=== PATIENT | female | born 1985 | race American Indian/Alaskan Native ===

== ENCOUNTER 2018-03-27 11:03 | Emergency (ER) | payer OTHER ==
[2018-03-27 11:46] VITALS: TEMP 97.9
[2018-03-27 13:03] LABS: HCG,QUALITATIVE URINE NEGATIVE (NEGATIVE)
[2018-03-27 13:10] LABS: SQUAMOUS EPITHIAL 3 /hpf (0-5); URINE BACTERIA RARE (<OCC); URINE BILIRUBIN NEGATIVE (NEGATIVE); URINE BLOOD 3+ (NEGATIVE); URINE CLARITY Clear (Clear); URINE COLOR Amber (YELLOW); URINE GLUCOSE (UA) NORMAL (Normal); URINE LEUKOCYTE ESTERASE NEG Leu/uL (Negative); URINE PROTEIN NEGATIVE (NEGATIVE); URINE UROBILINOGEN NORMAL mg/dL (0.2-1.0)
[2018-03-27] MEDS ORDERED: MethylPREDNISolone 40 mg Vial IVP STA (13:11)
[2018-03-27] MEDS ORDERED: Albuterol-Ipratrop 3 mg / 0.5 (3 ml) UD IH STA (13:14)
[2018-03-27] MEDS ORDERED: MethylPREDNISolone 40 mg Vial ONE (13:32)
[2018-03-27] MEDS ORDERED: Albuterol-Ipratrop 3 mg / 0.5 (3 ml) UD ONE (13:33)
--- NOTE | 2018-03-27 13:33 | RAD ---
HISTORY: asthma, SOB COMPARISON: Chest radiograph dated 03/03/2018 FINDINGS: LUNGS: No active pulmonary disease. PLEURA: No significant pleural effusion identified, no pneumothorax apparent. CARDIOVASCULAR: Normal. OSSEOUS STRUCTURES: No significant abnormalities. VISUALIZED UPPER ABDOMEN: Normal. OTHER FINDINGS: None. IMPRESSION: No active disease.
[2018-03-27 13:37] LABS: BASO # 0.1 K/uL (0.0-0.2); BASO % 1.2 % (0.0-2.0); EOS # 1.2 K/uL (0.0-0.7); EOS % 17.2 % (0.0-4.0); HEMOGLOBIN 9.3 g/dL (11.0-16.0); LYMPH # 1.9 K/uL (1.0-4.3); LYMPH % 28.4 % (20.0-40.0); MEAN CORPUSCULAR HEMOGLOBIN 23.4 pg (27.0-31.0); MEAN CORPUSCULAR HGB CONC 31.6 g/dL (33.0-37.0); MEAN PLATELET VOLUME 10.1 fL (7.2-11.7); MONO # 0.7 K/uL (0.0-0.8); MONO % 10.3 % (0.0-10.0); NEUT # 2.9 K/uL (1.8-7.0); NEUT % 42.9 % (50.0-75.0); RBC 3.97 Mil/uL (3.80-5.20); RED CELL DISTRIBUTION WIDTH 23.9 % (11.5-14.5); WHITE BLOOD COUNT 6.8 K/uL (4.8-10.8)
[2018-03-27 13:51] LABS: ALB/GLOB RATIO 0.9 (1.0-2.1); ALBUMIN 3.3 g/dL (3.5-5.0); ALT/SGPT 8 U/L (9-52); AST/SGOT 20 U/L (14-36); BLOOD UREA NITROGEN 11 mg/dL (7-17); CALCIUM 8.6 mg/dl (8.6-10.4); GFR AFRICAN-AMERICAN > 60; GFR NON-AFRICAN AMERICAN > 60
--- NOTE | 2018-03-27 14:11 | CT ---
PROCEDURE: CT Chest without contrast HISTORY: asthma, abnorm CXR COMPARISON: None. TECHNIQUE: Contiguous axial images were obtained through the chest without intravenous contrast enhancement. Sagittal and coronal reconstructions were performed. Radiation dose (DLP): 931.4 mGy-cm. This CT exam was performed using one or more of the following dose reduction techniques: Automated exposure control, adjustment of the mA and/or kV according to patient size, and/or use of iterative reconstruction technique. FINDINGS: LUNGS: Right apical subsegmental atelectasis. Scattered bilateral ground-glass nodules, predominantly in the left upper and right lower lobes, likely infectious/ inflammatory in etiology. Visualized airway clear. MEDIASTINUM: Unremarkable thoracic aorta. No aneurysm. Normal sized heart. Main pulmonary artery unremarkable. No vascular congestion. No lymphadenopathy. PLEURA: No pleural fluid. No pneumothorax. BONES: No fracture. No destructive lesion. UPPER ABDOMEN: Prior gastric sleeve surgery. OTHER FINDINGS: None. IMPRESSION: Scattered bilateral ground-glass nodules, predominantly left upper and right lower lobes, likely infectious/ inflammatory in etiology.
--- NOTE | 2018-03-27 14:14 | CT ---
PROCEDURE: CT NECK WITHOUT CONTRAST HISTORY: Stridor wheeze, r/o edema COMPARISON: No prior study available for comparison TECHNIQUE: Contiguous helical/ transaxial sections of the neck without intravenous contrast. Coronal and sagittal reformats generated. . Note that examination is somewhat limited due to the lack of circulating intravenous contrast material. Radiation dose: DLP 427.42 mGy-cm This CT exam was performed using one or more of the following dose reduction techniques: Automated exposure control, adjustment of the mA and/or kV according to patient size, and/or use of iterative reconstruction technique. . FINDINGS: The current study reveals no large cervical masses or collections. Multiple small nonspecific cervical lymph nodes are seen bilaterally none of which appear pathologically enlarged. Evaluation of the cervical vasculature is limited due to the lack of circulating intravenous contrast material. The major salivary glands and thyroid gland unremarkable. Central airway midline and patent. No evidence of airway narrowing. The oral cavity unremarkable. Vallecular and free margins of the epiglottis is well as aryepiglottic folds and pyriform sinuses normal. Vocal cords are symmetric. Lung apices clear. Note is made of complete opacification of the right maxillary sinus with mild to moderate mucosal thickening left maxillary sinus. There is also complete opacification of the ethmoid air complex and frontal sinus. Complete opacification right chamber sphenoid sinus and mild mucosal thickening left chamber sphenoid sinus. There is occlusion of the ostiomeatal complexes, frontal and sphenoid ethmoidal recesses. The cervical spine unremarkable. . NASOPHARYNX: Unremarkable. SUPRAHYOID NECK: Unremarkable oropharynx, oral cavity, parapharyngeal space and retropharyngeal space. INFRAHYOID NECK: Unremarkable larynx, hypopharynx, and supraglottic space. Vocal cords intact. MASS: None. GLANDS: Parotid and submandibular glands unremarkable. Normal size thyroid gland, without nodule. LYMPH NODES: Normal. No lymphadenopathy. CERVICAL SPINE: No fracture or focal lesion. OTHER FINDINGS: None. IMPRESSION: Airway is patent. Multiple small nonspecific bilateral cervical lymph nodes none of which appear pathologically enlarged. There is a diffuse pansinusitis changes with complete opacification of the right maxillary antrum, ethmoid air complex frontal sinus and right chamber sphenoid sinus. Mild to moderate mucosal thickening left maxillary sinus and mild mucosal thickening left chamber sphenoid sinus.
--- NOTE | 2018-03-27 15:46 | C.PDOC ---
History Of Present Illness 32-year-old female, PMHx includes Asthma, being seen in Dr Magaña office, for pre-op for sinus surgery, but has been having increased cough and wheeze over the past several weeks. Dr Hi appreciated stridor on exam, and thought she may have an airway obstruction, resulting in her being sent to ED for evaluation. Time Seen by Provider: 03/27/18 12:11 Chief Complaint (Nursing): Shortness Of Breath History Per: Patient History/Exam Limitations: no limitations Current Symptoms Are (Timing): Still Present Past Medical History Reviewed: Historical Data, Nursing Documentation, Vital Signs Vital Signs: Last Vital Signs Temp 97.9 F 03/27/18 11:39 Pulse 81 03/27/18 16:06 Resp 18 03/27/18 16:06 BP 124/61 03/27/18 16:06 Pulse Ox 94 L 03/27/18 19:05 - Medical History PMH: Anemia (iron transfusion), Anxiety, Asthma, Depression Family History: States: No Known Family Hx - Social History Hx Alcohol Use: Yes Hx Substance Use: No - Immunization History Hx Tetanus Toxoid Vaccination: Yes Hx Influenza Vaccination: Yes Hx Pneumococcal Vaccination: No Review Of Systems Constitutional: Negative for: Fever, Chills Cardiovascular: Negative for: Chest Pain Respiratory: Negative for: Shortness of Breath Gastrointestinal: Negative for: Vomiting Musculoskeletal: Negative for: Neck Pain, Back Pain Neurological: Negative for: Weakness, Numbness, Headache, Dizziness Physical Exam - Physical Exam Appears: Non-toxic, No Acute Distress Skin: Normal Color, Warm, Dry, No Rash Head: Normacephalic Eye(s): bilateral: Normal Inspection, PERRL, EOMI Nose: Normal Oral Mucosa: Moist Lips: Normal Appearing Throat: No Erythema Neck: Normal ROM, Trachea Midline, Supple Chest: Symmetrical, No Tenderness, No Ecchymosis, No Subcutaneous Emphysema Cardiovascular: Rhythm Regular, No Murmur Respiratory: No Decreased Breath Sounds, No Accessory Muscle Use, No Rales, No Rhonchi, No Stridor, Wheezing (Mod expiratory) Gastrointestinal/Abdominal: Bowel Sounds (active), Soft, No Tenderness Back: Normal Inspection, No CVA Tenderness Extremity: Normal ROM, No Deformity, No Swelling Neurological/Psych: Oriented x3, Normal Speech, Normal Motor Gait: Steady ED Course And Treatment - Laboratory Results Result Diagrams: 03/27/18 13:28 03/27/18 13:28 O2 Sat by Pulse Oximetry: 94 (RA) Pulse Ox Interpretation: Abnormal - CT Scan/US CT NECK Other Rad Studies (CT/US): Read By Radiologist, Radiology Report Reviewed CT/US Interpretation: Accession No. : [id number]. Patient Name / ID : HEENA COSME / [id number]. Exam Date : 03/27/2018 13:51:14 ( Approved ). Study Comment : Sex / Age : F / 32Y. Creator : Yessenia Acevedo. Dictator : Merchandise Handler : Photovoltaic Testing Technician : Alan Ramsey MD. Approver2 : Report Date : 13:58:44. My Comment : . PROCEDURE: CT NECK WITHOUT CONTRAST. HISTORY: Stridor wheeze, r/o edema. COMPARISON: No prior study available for comparison. TECHNIQUE: Contiguous helical/ transaxial sections of the neck without intravenous contrast. Coronal and sagittal reformats generated. . Note that examination is somewhat limited due to the lack of circulating intravenous contrast material. Radiation dose: DLP 427.42 mGy-cm. This CT exam was performed using one or more of the following dose reduction techniques: Automated exposure control, adjustment of the mA and/or kV according to patient size, and/or use of iterative reconstruction technique. . FINDINGS: The current study reveals no large cervical masses or collections. Multiple small nonspecific cervical lymph nodes are seen bilaterally none of which appear pathologically enlarged. Evaluation of the cervical vasculature is limited due to the lack of circulating intravenous contrast material. The major salivary glands and thyroid gland unremarkable. Central airway midline and patent. No evidence of airway narrowing. The oral cavity unremarkable. Vallecular and free margins of the epiglottis is well as aryepiglottic folds and pyriform sinuses normal. Vocal cords are symmetric. Lung apices clear. Note is made of complete opacification of the right maxillary sinus with mild to moderate mucosal thickening left maxillary sinus. There is also complete opacification of the ethmoid air complex and frontal sinus. Complete opacification right chamber sphenoid sinus and mild mucosal thickening left chamber sphenoid sinus. There is occlusion of the ostiomeatal complexes, frontal and sphenoid ethmoidal recesses. The cervical spine unremarkable. . NASOPHARYNX: Unremarkable. SUPRAHYOID NECK: Unremarkable oropharynx, oral cavity, parapharyngeal space and retropharyngeal space. INFRAHYOID NECK: Unremarkable larynx, hypopharynx, and supraglottic space. Vocal cords intact. MASS: None. GLANDS: Parotid and submandibular glands unremarkable. Normal size thyroid gland, without nodule. LYMPH NODES: Normal. No lymphadenopathy. CERVICAL SPINE: No fracture or focal lesion. OTHER FINDINGS: None. IMPRESSION: Airway is patent. Multiple small nonspecific bilateral cervical lymph nodes none of which appear pathologically enlarged. There is a diffuse pansinusitis changes with complete opacification of the right maxillary antrum, ethmoid air complex frontal sinus and right chamber sphenoid sinus. Mild to moderate mucosal thickening left maxillary sinus and mild mucosal thickening left chamber sphenoid sinus. CT CHEST Other Rad Studies (CT/US): Read By Radiologist, Radiology Report Reviewed CT/US Interpretation: Accession No. : [id number]. Patient Name / ID : HEENA COSME / [id number]. Exam Date : 03/27/2018 13:54:07 ( Approved ). Study Comment : Sex / Age : F / 32Y. Creator : Yessenia Acevedo. Dictator : Wil Goodrich MD. Merchandise Handler : Photovoltaic Testing Technician : Wil Goodrich MD. Approver2 : Report Date : 03/27/2018 14:00:40. My Comment : . PROCEDURE: CT Chest without contrast. HISTORY: asthma, abnorm CXR. COMPARISON: None. TECHNIQUE: Contiguous axial images were obtained through the chest without intravenous contrast enhancement. Sagittal and coronal reconstructions were performed. . Radiation dose (DLP): 931.4 mGy-cm. This CT exam was performed using one or more of the following dose reduction techniques: Automated exposure control, adjustment of the mA and/or kV according to patient size, and/ or use of iterative reconstruction technique. FINDINGS: LUNGS: Right apical subsegmental atelectasis. Scattered bilateral ground-glass nodules, predominantly in the left upper and right lower lobes, likely infectious/ inflammatory in etiology. Visualized airway clear. MEDIASTINUM: Unremarkable thoracic aorta. No aneurysm. Normal sized heart. Main pulmonary artery unremarkable. No vascular congestion. No lymphadenopathy. PLEURA: No pleural fluid. No pneumothorax. BONES: No fracture. No destructive lesion. UPPER ABDOMEN: Prior gastric sleeve surgery. OTHER FINDINGS: None. IMPRESSION: Scattered bilateral ground-glass nodules, predominantly left upper and right lower lobes, likely infectious/ inflammatory in etiology. Medical Decision Making Medical Decision Making: Plan: * CT Chest/Neck * Bloodwork * Chest X-Ray * Duoneb, SoluMedrol * UA * Reassess and Disposition The patient has had no stridor in the ED and airways are patent. Pulse ox is now 96% on RA. On re-exam, the patient reports improvement of symptoms. Lungs are CTA, heart is RRR, abdomen is soft, non-tender and the patient is tolerating PO well. Ambulatory in the Ed with steady gait. Follow up with the medical doctor within 1-2 days. Return if worsened. Disposition - Disposition Referrals: Michael Granger MD [Staff Provider] - Disposition: HOME/ ROUTINE Disposition Time: 15:47 Condition: IMPROVED Additional Instructions: Follow up with the medical doctor within 1-2 days. Return if worsened. Prescriptions: Albuterol HFA [Ventolin HFA 90 mcg/actuation (8 g)] 1 puff IH Q4 PRN #1 puff PRN Reason: Wheezing predniSONE [Prednisone] 20 mg PO BID #10 tab Instructions: Asthma in Adults Forms: [facility] ([place]) - Clinical Impression Clinical Impression: Asthma - Scribe Statement The provider has reviewed the documentation as recorded by the Scribe (Samira Pace) All medical record entries made by the Scribe were at my direction and personally dictated by me. I have reviewed the chart and agree that the record accurately reflects my personal performance of the history, physical exam, medical decision making, and the department course for this patient. I have also personally directed, reviewed, and agree with the discharge instructions and disposition.
[2018-03-27 16:09] VITALS: BP 124/61; PULSE 81; RESP 18
[2018-03-27 18:28] VITALS: O2SAT 94
== END 2018-03-27 16:09 | disposition home or self-care (01) ==
LOC: C.ER 11:03
DX: J45.909 Unspecified asthma, uncomplicated (principal)
CPT/HCPCS: 70490; 71045; 71250; 80053; 81001; 84703; 85025; 94150; 94640; 96374; 99284; J2920

== ENCOUNTER 2018-04-04 08:05 | Day surgery (SDC) | payer OTHER ==
[2018-03-31 09:57] VITALS: BMI 47.0
[~2018-04-04 08:05] MED LIST: EPINEPHrine 1:1000 Nasal Sol(30mL) ONE; Lidocaine/Epinephrine 1% 1:100000 10 ML IJ ONE; ceFAZolin 1 gm in NS 1 GM/100 ML BAG IVPB ONE
[2018-04-04] MEDS ORDERED: Acetaminophen-Codeine 300/30 mg Tab PO PRN (09:12)
[2018-04-04] MEDS ORDERED: Dextrose 5%/0.45% NS 1,000 ML IV SCH (09:15)
[2018-04-04] MEDS ORDERED: Lactated Ringer's 1,000 ML IV ONE ×2 (10:50→13:00)
[2018-04-04] MEDS ORDERED: Midazolam 2 MG/2 ML VIAL ONE (10:51)
[2018-04-04] MEDS ORDERED: Propofol 10 mg/ml Inj (20 ML) ONE (10:51)
[2018-04-04] MEDS ORDERED: Rocuronium 10 mg/ml (5 ml) ONE ×2 (10:53→10:54)
[2018-04-04] MEDS ORDERED: Succinylcholine Chloride 20 mg/ml Syr (5 ml) IV ONE (10:55)
[2018-04-04] MEDS ORDERED: Albuterol HFA 90 mcg/actuation (8 g) ONE (10:55)
[2018-04-04] MEDS ORDERED: HYDROmorphone 0.5 mg/0.5 ml ISec IVP PRN (12:28)
[2018-04-04] MEDS: HYDROmorphone 0.5 mg/0.5 ml ISec IVP PRN ×2 (12:40→13:05)
[2018-04-04] MEDS ORDERED: Neostigmine Methylsulfate 3mg/3ml Syringe IV ONE (12:57)
[2018-04-04 14:17] VITALS: RESP 18; O2SAT 95
[2018-04-04 14:53] VITALS: BP 113/62; PULSE 81; TEMP 97.7
--- NOTE | 2018-04-05 00:12 | OP ---
PROCEDURE DATE: 04/04/2018 PREOPERATIVE DIAGNOSES: Chronic sinusitis, deviated septum, large turbinates. POSTOPERATIVE DIAGNOSES: Chronic sinusitis, deviated septum, large turbinates. PROCEDURES: Endoscopic bilateral ethmoidectomy, endoscopic bilateral maxillary antrostomy, endoscopic bilateral sphenoidotomy, endoscopic bilateral frontal sinusotomy, septoplasty, and endoscopic bilateral inferior turbinate reduction. Polyposis on the ethmoid sinuses on both sides, maxillary and sphenoid antrum stenosed on both sides, frontal recess stenosed on both sides, deviated septum, enlarged inferior turbinates. DESCRIPTION OF PROCEDURE: The patient was brought into the room, placed in supine position. Anesthesia was initiated through an ET tube. Adrenaline-soaked pledgets were inserted into the nasal cavity, remained there for at least 5 minutes and removed. Navigation was set up and used throughout the case in order to ensure that the skull base and orbit were not entered. The patient was draped in the usual manner. The septum was injected with lidocaine with epinephrine on both sides. A Guion incision was made on the left, and mucoperichondrial flap was raised on the other side. A vertical incision was made in the cartilage leaving a 1.5 cm anterior and superior strut, and the mucoperichondrial flap was raised on the other side. Deviated portion of the bone and cartilage were removed. A quilting suture was used to suture the two flaps together and close the Guion incision. A 0-degree scope was inserted into the nasal cavity. The inferior turbinates were noted to be enlarged, and were reduced in size using scissors to confirm an inferior to superior, anterior to posterior direction on both sides, first on the left, then on the right. Bleeding was controlled using suction cautery. Attention was turned to the left. The middle turbinate was injected with lidocaine with epinephrine and medialized. The uncinate process was medialized. A debrider was used to enter the middle meatus which had polyps. It was also used to remove the uncinate process. The ethmoid bulla was entered inferomedially, going posteriorly to the basal lamella, then anteriorly and superiorly. The ethmoid bulla was removed. The basal lamella was entered. Posterior ethmoid cells were entered and opened. Skull base was identified and followed anteriorly all the way to the area of the anterior ethmoid air cells. The frontal recess was noted to be stenosed and opened using forceps. The sphenoid antrum was noted to be stenosed and opened using forceps. A curved suction was used to locate the maxillary antrum, which was noted to be stenosed and opened using forceps. Attention was turned to the other side. The middle turbinate was injected with lidocaine with epinephrine and medialized. A [place] elevator was used to medialize the uncinate process which was removed using a debrider. Polyps were found emanating from the middle meatus which were removed using a debrider. The ethmoid bulla was entered inferomedially, going posteriorly to the basal lamella, then anteriorly and superiorly until the ethmoid bulla was removed. The basal lamella was entered. Posterior ethmoid cells were entered and opened. Skull base was identified and followed anteriorly all the way to the area of the anterior ethmoid air cells. The frontal recess was noted to be stenosed and opened using forceps. The sphenoid antrum was noted to be stenosed and opened using forceps. Maxillary antrum was noted to be stenosed and opened using forceps. Bleeding was controlled using adrenaline-soaked pledgets and suction cautery. Splints were placed. Stents were placed. The patient was taken off anesthesia and taken to recovery room in a stable manner. Michael Granger MD
== END 2018-04-04 14:55 | disposition home or self-care (01) ==
LOC: C.SDS 08:05
PROVIDERS: ATTEND Otolaryngology
DX: J34.2 Deviated nasal septum (principal); J34.3 Hypertrophy of nasal turbinates; J32.0 Chronic maxillary sinusitis; J32.3 Chronic sphenoidal sinusitis; J32.2 Chronic ethmoidal sinusitis; J32.1 Chronic frontal sinusitis
CPT/HCPCS: 30520; 30801; 31254; 31256; 31276; 31287; 88304; J0690; J1170; J2001; J2250; J2405; J2704; J2710; J3010; J7120

== ENCOUNTER 2019-01-24 07:38 | Day surgery (SDC) | payer OTHER ==
[2019-01-23 11:54] VITALS: BMI 46.5
[2019-01-24 08:15] LABS: HCG,QUALITATIVE URINE NEGATIVE (NEGATIVE)
[2019-01-24] MEDS ORDERED: Propofol 10 mg/ml Inj (20 ML) ONE ×2 (09:31)
[2019-01-24] MEDS ORDERED: Simethicone 40 mg/0.6 ml Liquid (30 ml) ONE (10:02)
[2019-01-24 11:03] VITALS: O2SAT 98
[2019-01-24 11:17] VITALS: BP 118/64; PULSE 83; RESP 18; TEMP 98.1
== END 2019-01-24 11:15 | disposition home or self-care (01) ==
LOC: C.ENDO 07:38
PROVIDERS: ATTEND Internal Medicine Gastroenterology
DX: D50.9 Iron deficiency anemia, unspecified (principal); K64.8 Other hemorrhoids; K44.9 Diaphragmatic hernia without obstruction or gangrene; Z98.84 Bariatric surgery status